=== PATIENT | female | born 2000 | race Hispanic/Latino ===

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

== ENCOUNTER 2021-03-02 11:09 | Emergency (ER) | payer SELFPAY ==
[~2021-03-02] VITALS: Ht 157.5 cm; Wt 72.6 kg
[2021-03-02] MEDS ORDERED: BACTRIM DS TAB1 EACH PO (12:18)
[2021-03-02] MEDS ORDERED: CLEOCIN HCL300 MG PO (12:20)
== END 2021-03-02 12:34 | disposition home or self-care (01) ==
LOC: FSED 11:32
DX: B99.8 Other infectious disease (principal); B95.8 Unspecified staphylococcus as the cause of diseases classified elsewhere
CPT/HCPCS: 99282

== ENCOUNTER 2025-01-17 17:28 | Observation (INO) | payer OTHER ==
[~2025-01-17] VITALS: Ht 157.5 cm; Wt 72.6 kg
[~2025-01-17 17:28] MED LIST: BACTRIM DS TAB1 EACH PO; CLEOCIN HCL300 MG PO; ONDANSETRON ODT4 MG PO
[2025-01-17 17:37] VITALS: RESP 18; TEMP 98.7
[2025-01-17 19:02] LABS: BASOPHILS % 0.3 % (0.0-1.0); EOSINOPHILS % 0.7 % (0.0-6.0); LYMPHOCYTES % 8.8 % (18.0-39.1); MONOCYTES % 6.5 % (4.4-11.3); NEUTROPHILS % 83.2 % (38.7-80.0); RED CELL DISTRIBUTION WIDTH 19.9 % (11.7-14.4)
[2025-01-17 19:09] LABS: LEUKOCYTE ESTERASE ,URINE NEGATIVE (NEGATIVE); PROTEIN,URINE DIPSTICK NEGATIVE (NEGATIVE); URINE UROBILINOGEN 0.2 mg/dL (0.2 - 1)
[2025-01-17 19:11] LABS: PREGNANCY TEST, URINE NEGATIVE (NEGATIVE)
[2025-01-17 19:14] LABS: STREPTOCOCCUS GRP A ANTIGEN NEGATIVE (NEGATIVE)
[2025-01-17 19:18] LABS: CORONAVIRUS COVID-19 AG NEGATIVE (NEGATIVE)
[2025-01-17 19:22] LABS: WBC,URINE (MAN) 0-5 /HPF (0-5)
[2025-01-17 19:23] LABS: EPITHELIAL CELLS,URINE MODERATE /LPF
[2025-01-17 19:25] LABS: EST GLOMERULAR FILTRATION RATE 127.0 ML/MIN (>=60)
[2025-01-17] MEDS ORDERED: ACETAMINOPHEN 325 MG TAB PO STA (21:32)
[2025-01-17 21:45] VITALS: PULSE 96
[2025-01-17] MEDS ORDERED: FUROSEMIDE INJ 10 MG/ML 2 ML VIAL IV PRN (21:45)
[2025-01-17] MEDS ORDERED: FAMOTIDINE 20 MG/2 ML VIAL IV ONE (21:45)
[2025-01-17] MEDS ORDERED: DIPHENHYDRAMINE HCL INJ 50 MG/ML VIAL IV ONE (21:45)
[2025-01-17] MEDS ORDERED: DEXAMETHASONE SOD PHOS 10 MG/1 ML VIAL IV ONE (21:45)
[2025-01-17 22:00] VITALS: BP 108/64; PULSE 77; RESP 18; TEMP 98.9; O2SAT 100
[2025-01-18] VITALS (12 sets, daily range): BP systolic 110–125; BP diastolic 62–78; PULSE 71–92; RESP 16–18; TEMP 98.2–98.9; O2SAT 100
[2025-01-18] MEDS: SODIUM CHLORIDE 0.9% 250ML 250 ML IV ONE (02:34)
[2025-01-18] MEDS: SODIUM CHLORIDE 0.9% 250ML 250 ML ONE (06:42)
[2025-01-18 09:16] LABS: BASOPHILS % 0.3 % (0.0-1.0); EOSINOPHILS % 1.4 % (0.0-6.0); LYMPHOCYTES % 11.3 % (18.0-39.1); MONOCYTES % 9.1 % (4.4-11.3); NEUTROPHILS % 77.4 % (38.7-80.0); RED CELL DISTRIBUTION WIDTH 24.8 % (11.7-14.4)
[2025-01-18] MEDS ORDERED: ONDANSETRON HCL INJ 2MG/ML 2ML 2 MG/ML VIAL IV PRN (09:30)
[2025-01-18 09:47] LABS: EST GLOMERULAR FILTRATION RATE 128.0 ML/MIN (>=60)
[2025-01-18] MEDS: POTASSIUM CHLORIDE 10MEQ EA PO ONE (10:10)
[2025-01-18] MEDS ORDERED: FERROUS FUMARA324 MG PO (10:26)
[2025-01-18] MEDS ORDERED: DOCUSATE SODIU100 MG PO (10:27)
== END 2025-01-18 10:41 | disposition home or self-care (01) ==
LOC: ER 17:57 → ERHOLD 20:11 → MED/SURG3 21:02
PROVIDERS: ADMIT Internal Medicine; ATTEND Internal Medicine
DX: D50.0 Iron deficiency anemia secondary to blood loss (chronic) (principal); N92.0 Excessive and frequent menstruation with regular cycle; R11.0 Nausea
CPT/HCPCS: 36415 ×2; 36430 ×2; 80053 ×2; 81001; 81025; 83518; 85025 ×2; 86850; 86900; 86920; 87070; 87428; 99284; G0378 ×2; J7050 ×2; P9016 ×2